=== PATIENT | male | born 1940 | race Caucasian/White ===

== ENCOUNTER 2016-07-19 12:04 | Emergency (ER) | payer MEDICARE, BC ==
[2016-07-19 11:57] LABS: BASOPHILS 0.4 %; BASOPHILS ABSOLUTE 0.02 10/3/uL (0.0-0.16); EOSINOPHILS 0.6 %; EOSINOPHILS ABSOLUTE 0.03 10/3/uL (0.0-0.53); ER CBC TAT 0 Hrs 07 Mins; IMMATURE GRANULOCYTES 1.1 %; IMMATURE GRANULOCYTES ABSOLUTE 0.06 10/3/uL (0.0-0.11); LYMPHOCYTES 21.4 %; LYMPHOCYTES ABSOLUTE 1.16 10/3/uL (0.67-4.30); MEAN CORPUS HGB CONC 32.5 g/dL (32.0-36.0); MEAN CORPUSCULAR HEMOGLOB 30.9 pg (26.0-34.0); MEAN PLATELET VOLUME 9.7 fL (9.2-13.0); MONOCYTES 13.1 %; MONOCYTES ABSOLUTE 0.71 10/3/uL (0.21-1.20); NEUTROPHILS 63.4 %; NEUTROPHILS ABSOLUTE 3.43 10/3/uL (2.02-8.40); RBC DISTRIBUTION WIDTH 14.2 % (12.0-16.0); WHITE BLOOD CELLS 5.4 10/3/uL (4.5-10.5)
[2016-07-19 12:01] LABS: HEMATOCRIT 34.2 % (40.0-51.0); HEMOGLOBIN 11.1 g/dL (13.6-17.8); MANUAL DIFF NO %; MEAN CORPUSCULAR VOLUME 95.3 fL (80-100); PLATELET COUNT 246 10/3/uL (150-400); RED CELL COUNT 3.59 10/6/uL (4.7-6.1)
[~2016-07-19 12:04] MED LIST: ALEVE220 MG PO; ASA5GR PO; ASABAYER PO; ENDOCET1 TA3 PO; FISH OIL PO; FISH-EPA1000 MG PO; FLOMAX4 PO; LOP25 PO; MIRALAXPKT PO; MOBIC7.5 PO; NEUR100 PO; PERCOCET1 TA4 PO; PRAVAC PO; PROSCAR5 PO; ULTRAM50 PO; VITAMIN B PO; VITAMIN B-12 PO; VITAMIN D1000 UNI1 PO; VITAMIN D3 PO
[2016-07-19 12:06] LABS: INTERNATIONAL NORMAL RATI 3.2 UNITS (-)
[2016-07-19 12:07] LABS: PARTIAL THROMBO TIME 96.6 SEC (22.5-37.2)
[2016-07-19 12:08] LABS: PROTIME (NOT ORD) 32.8 SEC (12.0-14.5)
[2016-07-19 12:15] LABS: CHLORIDE, SERUM 104 MMOL/L (96-112); CO2 (CARBON DIOXIDE) 24 MMOL/L (24-34); GLUCOSE, SERUM 99 MG/DL (60-99); SGPT(ALT) 25 U/L (5-65); SODIUM, SERUM 139 MMOL/L (135-148); TOTAL BILIRUBIN 0.8 MG/DL (0-1.2)
[2016-07-19 12:17] LABS: A/G RATIO 0.8 (0.7-1.9); ALBUMIN 3.2 G/DL (3.5-5.0); ALKALINE PHOSPHATASE 95 U/L (45-117); BUN (BLOOD UREA NITROGEN) 21 MG/DL (6-23); CALCIUM, SERUM 8.6 MG/DL (8.5-10.4); CREATININE 1.05 MG/DL (0.70-1.30); GFR AFRICAN AMERICAN 81 ML/MIN (>=60); GFR NON AFRICAN AMERICAN 70 ML/MIN (>=60); GLOBULIN 4.2 G/DL (2.5-4.1); POTASSIUM, SERUM 4.4 MMOL/L (3.5-5.3); SGOT(AST) 36 U/L (5-40); TOTAL PROTEIN 7.4 G/DL (6.0-8.5)
[2016-07-19 12:18] LABS: LACTATE 0.9 MMOL/L (0.3-2.4)
[2016-07-19 12:30] LABS: ASCORBIC ACID (UR NOT ORDER) 40 (NEG); BILIRUBIN, URINE NEGATIVE (NEG); ER URINALYSIS TAT 0 Hrs 10 Mins; KETONE, URINE NEGATIVE (NEG); LEUKOCYTE ESTERASE(NOT OR NEG (NEG); NITRITE (URINE) NEG (NEG); WBC (NOT ORDERED) (RFLEX) < 1 (0-5)
[2016-07-19 12:39] LABS: PROCALCITONIN <0.05 ng/mL (<0.5)
[2016-07-19 12:42] LABS: SED RATE 99 MM/HR (0-15)
== END 2016-07-19 17:13 | disposition home or self-care (01) ==
LOC: ER 12:04
PROVIDERS: Emergency Medicine
DX: M54.5 Low back pain (principal); I10 Essential (primary) hypertension; F41.9 Anxiety disorder, unspecified; F32.9 Major depressive disorder, single episode, unspecified; D64.9 Anemia, unspecified; Z88.8 Allergy status to other drugs, medicaments and biological substances; Z79.899 Other long term (current) drug therapy; Z79.82 Long term (current) use of aspirin
CPT/HCPCS: 71010; 72131; 80053; 81001; 83605; 84145; 85025; 85610; 85652; 85730; 86140; 87040; 93005; 99284